=== PATIENT | female | born 1995 | race Two or more races ===

== ENCOUNTER 2020-05-19 17:15 | Inpatient (IN) | payer OTHER ==
[~2020-05-19] VITALS: Ht 157.5 cm; Wt 58.5 kg
[2020-05-19] MEDS ORDERED: PRENATAL + DHA1 EAC1 PO (22:01)
[2020-05-19] MEDS ORDERED: FOLIC ACID0.8 M1 PO (22:01)
== END 2020-05-20 11:37 | disposition home or self-care (01) | DRG 833 ==
LOC: LDR 17:15
PROVIDERS: ADMIT Specialist; ATTEND Specialist
PROC: 4A0HXFZ Measurement of Products of Conception, Cardiac Rhythm, External Approach (ICD-10-PCS; principal; 2020-05-19)
PROC: 8E0ZXY6 Isolation (ICD-10-PCS; 2020-05-19)
DX: O99.512 Diseases of the respiratory system complicating pregnancy, second trimester (principal); J06.9 Acute upper respiratory infection, unspecified; Z20.828 Contact with and (suspected) exposure to other viral communicable diseases; Z3A.27 27 weeks gestation of pregnancy

== ENCOUNTER 2020-08-06 14:30 | Inpatient (IN) | payer OTHER ==
[~2020-08-06] VITALS: Ht 157.5 cm; Wt 67.6 kg
[~2020-08-06 14:30] MED LIST: FOLIC ACID0.8 M1 PO; PRENATAL + DHA1 EAC1 PO
== END 2020-08-19 11:26 | disposition home or self-care (01) | DRG 807 ==
LOC: LDR 08-17 06:13 → OB/GYN 08-17 06:13 → SURH 08-18 14:30 → OB/GYN 08-19 11:26
PROVIDERS: ADMIT Specialist; ATTEND Specialist
PROC: 10E0XZZ Delivery of Products of Conception, External Approach (ICD-10-PCS; principal; 2020-08-17)
PROC: 0KQM0ZZ Repair Perineum Muscle, Open Approach (ICD-10-PCS; 2020-08-17)
PROC: 4A1HXFZ Monitoring of Products of Conception, Cardiac Rhythm, External Approach (ICD-10-PCS; 2020-08-17)
DX: O70.1 Second degree perineal laceration during delivery (principal); Z37.0 Single live birth; Z3A.39 39 weeks gestation of pregnancy; Z20.822 Contact with and (suspected) exposure to COVID-19

== ENCOUNTER 2020-10-25 03:42 | Emergency (ER) | payer OTHER ==
[~2020-10-25] VITALS: Ht 157.5 cm; Wt 56.7 kg
[2020-10-25] MEDS ORDERED: PEPCID AC20 MG PO (07:47)
[2020-10-25] MEDS ORDERED: ORPHENADRINE C100 MG PO (07:47)
[2020-10-25] MEDS ORDERED: NAPROXEN375 MG PO (07:47)
== END 2020-10-25 07:55 | disposition home or self-care (01) ==
LOC: ER 03:42
DX: R07.89 Other chest pain (principal); M94.0 Chondrocostal junction syndrome [Tietze]; Z11.52 Encounter for screening for COVID-19

== ENCOUNTER 2020-11-09 13:57 | Emergency (ER) | payer OTHER ==
[~2020-11-09] VITALS: Ht 157.5 cm; Wt 56.7 kg
[~2020-11-09 13:57] MED LIST changes: +NAPROXEN375 MG PO; +ORPHENADRINE C100 MG PO; +PEPCID AC20 MG PO
[2020-11-09] MEDS ORDERED: MUCINEX DM ER1 EAC1 PO (18:01)
[2020-11-09] MEDS ORDERED: CLARITIN10 M1 PO (18:01)
[2020-11-09] MEDS ORDERED: ACETAMINOPHEN650 M2 PO (19:23)
== END 2020-11-09 20:16 | disposition home or self-care (01) ==
LOC: ER 13:57
DX: J06.9 Acute upper respiratory infection, unspecified (principal); B34.9 Viral infection, unspecified; Z11.52 Encounter for screening for COVID-19

== ENCOUNTER 2021-01-06 12:20 | Emergency (ER) | payer OTHER ==
[~2021-01-06] VITALS: Ht 157.5 cm; Wt 61.2 kg
[~2021-01-06 12:20] MED LIST changes: +ACETAMINOPHEN650 M2 PO; +CLARITIN10 M1 PO; +MUCINEX DM ER1 EAC1 PO
[2021-01-06] MEDS ORDERED: LEVALBUTER1.25 MG/0. IH (18:13)
[2021-01-06] MEDS ORDERED: TESSALON PERLE100 M1 PO (18:13)
[2021-01-06] MEDS ORDERED: IPRATROPIU0.2 MG/1 M IH (18:13)
[2021-01-06] MEDS ORDERED: BUDESONIDE0.5 MG/2 M IH (18:13)
== END 2021-01-06 18:50 | disposition home or self-care (01) ==
LOC: ER 12:20
DX: J45.998 Other asthma (principal)

== ENCOUNTER 2021-01-06 22:44 | Emergency (ER) | payer OTHER ==
[~2021-01-06] VITALS: Ht 157.5 cm; Wt 61.2 kg
[~2021-01-06 22:44] MED LIST changes: +BUDESONIDE0.5 MG/2 M IH; +IPRATROPIU0.2 MG/1 M IH; +LEVALBUTER1.25 MG/0. IH; +TESSALON PERLE100 M1 PO
== END 2021-01-07 02:48 | disposition home or self-care (01) ==
LOC: ER 22:44
DX: J45.998 Other asthma (principal)

== ENCOUNTER 2021-05-19 15:56 | Emergency (ER) | payer OTHER ==
[~2021-05-19] VITALS: Ht 157.5 cm; Wt 61.2 kg
[2021-05-19] MEDS ORDERED: PEPCID AC20 MG PO (22:02)
[2021-05-19] MEDS ORDERED: OMEPRAZOLE MAGN20 MG PO (22:02)
== END 2021-05-19 22:14 | disposition home or self-care (01) ==
LOC: ER 15:56
DX: K29.00 Acute gastritis without bleeding (principal); K82.4 Cholesterolosis of gallbladder; Z03.818 Encounter for observation for suspected exposure to other biological agents ruled out